=== PATIENT | male | born 1965 | race American Indian/Alaskan Native ===

== ENCOUNTER 2018-06-28 17:50 | Inpatient (IN) | payer MEDICAID ==
--- NOTE | 2018-06-28 19:28 | Emergency Department Report ---
ED Psych HPI - General Chief Complaint: Psych Stated Complaint: SI Time Seen by Provider: 06/28/18 19:19 Source: patient Mode of arrival: Ambulatory - History of Present Illness Initial Comments: Patient is 52 years old male with history of schizophrenia and HIV. Patient presented to the ER stating that he is hearing voices asking him to kill himself by walking in front of her car. Patient denied any visual hallucination. He also denied any homicidal ideation. MD Complaint: suicidal ideation, feels depressed Associated Psychiatric Symptoms: depression, suicidal ideation, auditory hallucinations Quality: constant Associated Symptoms: denies other symptoms Treatments Prior to Arrival: none If Self Harm: admits thoughts of, has plan, self-inflicted trauma - Related Data Allergies Allergy/AdvReac Type Severity Reaction Status Date / Time tramadol Allergy Unknown Verified 06/28/18 17:59 ED Review of Systems ROS: Stated complaint: SI Other details as noted in HPI Comment: All other systems reviewed and negative Constitutional: denies: chills, fever Respiratory: denies: cough, orthopnea, shortness of breath, SOB with exertion, SOB at rest, wheezing Cardiovascular: denies: chest pain, palpitations Gastrointestinal: denies: abdominal pain, nausea, vomiting, diarrhea, constipation, hematemesis, melena Musculoskeletal: denies: back pain Neurological: denies: headache, weakness, numbness, paresthesias, confusion Psychiatric: depression, auditory hallucinations, suicidal thoughts. denies: visual hallucinations, homicidal thoughts ED Physical Exam - General Limitations: No Limitations General appearance: alert, in no apparent distress - Head Head exam: Present: atraumatic, normocephalic, normal inspection - Eye Eye exam: Present: normal appearance, PERRL - ENT ENT exam: Present: normal exam, normal orophraynx, mucous membranes moist - Neck Neck exam: Present: normal inspection, full ROM. Absent: tenderness, meningismus, lymphadenopathy, thyromegaly - Respiratory Respiratory exam: Present: normal lung sounds bilaterally - Cardiovascular Cardiovascular Exam: Present: regular rate, normal rhythm, normal heart sounds - GI/Abdominal GI/Abdominal exam: Present: soft, normal bowel sounds. Absent: distended, tenderness, guarding, rebound, rigid, organomegaly, mass, bruit, pulsatile mass, hernia - Extremities Exam Extremities exam: Present: normal inspection, full ROM, normal capillary refill - Back Exam Back exam: Absent: CVA tenderness (R), CVA tenderness (L) - Neurological Exam Neurological exam: Present: alert, oriented X3, CN II-XII intact, normal gait - Psychiatric Psychiatric exam: Present: depressed, suicidal ideation. Absent: agitated, anxious, flat affect, manic, homicidal ideation - Skin Skin exam: Present: warm, intact, normal color Critical care attestation.: If time is entered above; I have spent that time in minutes in the direct care of this critically ill patient, excluding procedure time. ED Disposition Clinical Impression: Suicidal ideation Disposition: DC/TX-65 PSY HOSP/PSY UNIT Is pt being admited?: No Condition: Stable
[2018-06-28 19:33] LABS: BUN/Creatinine Ratio 16; Blood Urea Nitrogen 11 mg/dL (9-20); Calcium 8.7 mg/dL (8.4-10.2); Hemolysis Index 22
[2018-06-28] MEDS ORDERED: IBUPROFEN PO PRN (23:57)
[2018-06-29 01:51] LABS: Hematocrit 38.3 % (35.5-45.6); Hemoglobin 12.9 gm/dl (11.8-15.2); Mean Corpuscular HGB Conc 34 % (32-34); Mean Corpuscular Volume 96 fl (84-94); Platelet Count 166 K/mm3 (140-440); Red Cell Distribution Width 15.4 % (13.2-15.2)
[2018-06-29 03:21] LABS: Basophils % (Manual) 0 % (0.0-1.8); Total Cells Counted 100
[2018-06-29 03:22] LABS: Platelet Estimate Consistent w Auto; RBC Morphology Normal
[2018-06-29] MEDS: TRIMOX PO SCH ×3 (08:17→20:37)
[2018-06-29] MEDS: IBUPROFEN PO PRN ×2 (08:26→17:36)
[2018-06-29 09:41] LABS: Amphetamine Screen,Urine PRESUMPTIVE NEGATIVE; Benzodiazepines Screen,Urine PRESUMPTIVE NEGATIVE; Cannabinoid Screen,Urine PRESUMPTIVE NEGATIVE; Methadone Screen,Urine PRESUMPTIVE NEGATIVE; Opiate Screen,Urine PRESUMPTIVE NEGATIVE
[2018-06-29] MEDS: PERIDEX MM SCH ×2 (09:44→22:59)
[2018-06-29 10:04] LABS: Cocaine Screen,Urine PRESUMPTIVE POSITIVE
[2018-06-29 10:05] LABS: Bilirubin,Urine NEG (Negative); Blood,Urine NEG (Negative); Color,Urine Yellow (Yellow); Mucus,Urine FEW /HPF; Protein,Urine <15 mg/dL mg/dL (Negative); RBC,Urine < 1.0 /HPF (0.0-6.0); Urobilinogen,Urine < 2.0 mg/dL (<2.0)
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
[2018-06-29] MEDS ORDERED: TYLENOL ONE (14:49)
[2018-06-29] MEDS ORDERED: TYLENOL PO ONE (14:53)
[2018-06-29] MEDS: REMERON PO SCH (22:59)
[2018-06-29] MEDS: TYLENOL PO PRN (22:59)
[2018-06-30] MEDS: TRIMOX PO SCH ×3 (09:00→21:15)
[2018-06-30] MEDS: PERIDEX MM SCH ×2 (10:00→21:51)
[2018-06-30] MEDS ORDERED: NACL 0.9% 1000 ML 1,000 ML ONE (12:08)
[2018-06-30] MEDS ORDERED: CARDIZEM ONE (12:30)
[2018-06-30] MEDS: IBUPROFEN PO PRN (12:58)
--- NOTE | 2018-06-30 13:06 | Progress Note ---
Subjective - Reason for Consult Consult date: 06/30/18 Reason for consult: Psychiatric Follow-up Evaluation - Chief Complaint Chief complaint: "I still want to hurt myself" Patient is a 52 y.o. AA male who presented to the ER with SI's. Today the patient is calm and cooperative during the assessment. Today the patient is calm and cooperative during the assessment. He continues to endorse suicidal ideations without a plan and auditory hallucinations telling him " they're not going to help you and to hurt myself." He reports decrease sleep and appetite. He continues to state that he want help with his "cocaine habit." He stated that he is consuming alcohol (etoh) more frequently and is currently homeless. Reports medication compliance. No side effects noted/reported. Mental Status Exam - Vital signs Last Vital Signs Temp 97.8 F 06/30/18 07:49 Pulse 66 06/30/18 07:49 Resp 18 06/30/18 07:49 BP 123/80 06/30/18 07:49 Pulse Ox 100 06/30/18 07:49 - Exam Narrative exam: Mental Status Exam: Appearance: calm, cooperative Behavior: regular eye contact Speech: regular rate and tone Mood: "I still want to hurt myself" Affect: flat Thought Process: circumstantial Thought Content: denies HI's ; + SI's, AH's, and delusions Motor Activity: lying in bed Cognition: A/O x 3 Insight: fair Judgment: poor Assessment and Plan Impression: MDD. PTSD. Alcohol Use DO. Substance Use DO (cocaine). Today the patient is calm and cooperative during the assessment The patient endorses SI's without a plan, auditory hallucinations, and delusions . DDx: Substance Induced Mood DO Recommendation/Plan: 1. Continue 1013. 2. Continue Remeron 15 mg PO HS for depression/PTSD. Discussed possible suicidality/medication induced pedro with the patient reference Remeron. 3. Start Abilify 5mg po QAM mood/psychosis. Discussed possible metabolic side effects. Patient verbalizes understanding. Disposition: The patient was referred to inpatient psychiatric services. Staffed with Dr. Dmitry Verdin.
[2018-06-30 13:28] LABS: Alanine Aminotransferase 28 units/L (7-56); Albumin 3.1 g/dL (3.9-5); Bilirubin,Direct < 0.2 mg/dL (0-0.2)
[2018-06-30] MEDS: TYLENOL PO PRN (15:56)
[2018-06-30] MEDS: REMERON PO SCH (21:51)
[2018-07-01] MEDS ORDERED: BENADRYL PO ONE (07:35)
[2018-07-01 07:57] LABS: Hemoglobin 13.9 gm/dl (11.8-15.2); Mean Corpuscular HGB Conc 34 % (32-34); Mean Corpuscular Volume 96 fl (84-94); Platelet Count 236 K/mm3 (140-440); Red Blood Count 4.28 M/mm3 (3.65-5.03); Red Cell Distribution Width 15.3 % (13.2-15.2)
[2018-07-01 08:08] LABS: INR 0.83 (0.87-1.13)
[2018-07-01 08:09] LABS: Partial Thromboplastin Time 25.7 Sec. (24.2-36.6)
[2018-07-01 08:21] LABS: Creatine Kinase MB < 1.0 ng/mL (0.0-4.0)
--- NOTE | 2018-07-01 08:31 | Cat Scan Report ---
CT HEAD WITHOUT CONTRAST: HISTORY: Altered mental status, HIV, neutropenia. TECHNIQUE: Sequential 2.5mm CT images. COMPARISON: none. FINDINGS: Cerebral Parenchyma: Within normal limits. Cerebellum: Within normal limits. Brainstem: Within normal limits. Ventricles: Normal. Sella: Normal. Extra-axial spaces: Normal. Basal Cisterns: Normal. Intracranial Hemorrhage: None. Midline Shift: None. Calvarium: Normal. Sinuses: There is a mild degree of secretions or fluid in the ethmoid and right maxillary sinus. Mastoid Air Cells: Normal. Visualized Orbits: Normal. IMPRESSION: Cranial CT scan within normal limits. Mild sinus disease as described.
[2018-07-01] MEDS: TRIMOX PO SCH ×3 (09:00→22:27)
[2018-07-01 09:21] LABS: Anisocytosis 1+; Large Platelets Few; Platelet Estimate Consistent w Auto; Total Cells Counted 50
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
[2018-07-01] MEDS ORDERED: ABILIFY PO SCH (10:00)
[2018-07-01] MEDS: ZOLOFT PO SCH (11:00)
[2018-07-01] MEDS: PERIDEX MM SCH ×2 (11:00→22:27)
--- NOTE | 2018-07-01 11:06 | Cat Scan Report ---
CT FACIAL BONES WITHOUT CONTRAST: HISTORY: Pain, mandible fracture. TECHNIQUE: Helical CT images with sagittal and coronal CT reformations. FINDINGS: There is been previous internal fixation of the angle of the left mandible, left anterior maxillary wall and left lateral orbital wall. There are new/acute fractures involving the body of the left mandible, and right mandibular neck, right coronoid process and right zygoma. The remaining facial bones are intact. There is partial opacification of the ethmoid sinuses and small secretions in the right maxillary sinus. IMPRESSION: Multiple chronic internally fixated left facial fractures as described. Acute fractures are identified in the body of the left mandible, right mandibular neck, right coronoid process and right zygoma. These findings were discussed with Dr. Millan at 1035 hrs.
[2018-07-01] MEDS ORDERED: ABILIFY ONE (11:08)
[2018-07-01] MEDS ORDERED: ZOLOFT ONE ×2 (11:08→11:16)
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
--- NOTE | 2018-07-01 14:00 | Progress Note ---
Subjective - Reason for Consult Consult date: 07/01/18 Reason for consult: Psychiatry Follow-up - Chief Complaint Chief complaint: "I am not right" 52 y.o. AA male who presented to the ER with SI's. Today the patient is calm and cooperative during the assessment. He continues to state that he is still suicidal without a plan. He stated that he had a a "reaction" to the Remeron. He stated that he was experiencing "lower body twitching" when asked about the reaction. He denies HI's and VH's (intermittent AH's). He stated that he have not slept well the past 2 nights, Mental Status Exam - Vital signs Last Vital Signs Temp 98.3 F 07/01/18 09:05 Pulse 64 07/01/18 09:05 Resp 18 07/01/18 09:05 BP 149/99 07/01/18 09:05 Pulse Ox 95 07/01/18 09:05 - Exam Narrative exam: MSE: Appearance: calm, cooperative Behavior: regular eye contact Speech: regular rate and tone Mood: "tired" Affect: congruent to mood Thought Process: circumstantial Thought Content: denies HI's and VH's, intermittent AH's Motor Activity: lying in bed Cognition: A/O x3 Insight: fair Judgment: variable Assessment and Plan Impression: MDD. PTSD. Alcohol Use DO. Substance Use DO (cocaine). Today the patient is calm and cooperative during the assessment The patient endorses SI's without a plan. WBC 1.3. . DDx: Substance Induced Mood DO Recommendation/Plan: Continue 1013. D/C Remeron and start Zoloft 50 mg PO daily for depression/PTSD and Benadryl 25 mg PO HS for sleep. Discussed possible suicidality/medication induced pedro with the patient reference Zoloft. Will monitor the patient for psychosis, the patient's WBC is 1.3. Dispo: Once the patient is medically stable, proper dispo will be determined. Staffed with Dr Dmitry Verdin.
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
[2018-07-01 18:12] LABS: Hepatitis B Surface Antigen Reactive (Negative); Hepatitis C Virus Antibody Non-Reactive (NonReactive)
[2018-07-01] MEDS: LOVENOX SUB-Q SCH (22:27)
[2018-07-01] MEDS: BENADRYL PO SCH (22:27)
--- NOTE | 2018-07-01 22:50 | XRay Report ---
PROCEDURE: XR CHEST ROUTINE 2V TECHNIQUE: PA and lateral chest radiographs were obtained. HISTORY: homeless with AIDS eval for cavities/ TB/pneumonia COMPARISONS: None. FINDINGS: Heart: Normal. Mediastinum/Vessels: Normal. Lungs/Pleural space: Normal. Bony thorax: No acute osseous abnormality. IMPRESSION: Normal examination. This document is electronically signed by Jon Mauricio MD., July 01 2018 10:47:55 PM ET
[2018-07-02] MEDS ORDERED: COGENTIN PO SCH (10:00)
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
--- NOTE | 2018-07-02 12:51 | Progress Note ---
Subjective - Reason for Consult Consult date: 07/02/18 Reason for consult: Psychiatry Follow-up - Chief Complaint Chief complaint: "I'm well" 52 y.o. AA male who presented to the ER with SI's. Today the patient is calm and cooperative during the assessment. He stated that he is feeling pretty well today. He stated that his SI's "decreased." He denies HI's and AVH's. He denies any side effects of his medication. Mental Status Exam - Vital signs Last Vital Signs Temp 98.3 F 07/01/18 09:05 Pulse 70 07/02/18 05:42 Resp 18 07/01/18 13:55 BP 135/94 07/02/18 05:42 Pulse Ox 95 07/02/18 05:42 - Exam Narrative exam: MSE: Appearance: calm, cooperative Behavior: regular eye contact Speech: regular rate and tone Mood: "okay" Affect: congruent to mood Thought Process: circumstantial Thought Content: denies HI's and AVH's Motor Activity: lying in bed Cognition: A/O x3 Insight: variable to fair Judgment: variable to fair Assessment and Plan Impression: MDD. PTSD. Alcohol Use DO. Substance Use DO (cocaine). Today the patient is calm and cooperative during the assessment The patient endorses SI's without a plan. WBC 1.3. DDx: Substance Induced Mood DO Recommendation/Plan: Reevaluate the patient's 1013 in 24 hours. Continue Zoloft 50 mg PO daily for depression/PTSD and Benadryl 25 mg PO HS for sleep. Discussed possible suicidality/medication induced pedro with the patient reference Zoloft. Dispo: If the patient's 1013 is rescinded, he can follow up with [facility] for outpatient psy services. Will staff with Dr Dmitry Verdin.
[2018-07-02] MEDS: ZOLOFT PO SCH (13:28)
[2018-07-02] MEDS: TRIMOX PO SCH ×3 (13:28→21:58)
[2018-07-02] MEDS: PERIDEX MM SCH ×2 (14:36→21:58)
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
[2018-07-02] MEDS: LOVENOX SUB-Q SCH (21:58)
[2018-07-02] MEDS: BENADRYL PO SCH (21:58)
[2018-07-03] MEDS: PERIDEX MM SCH ×2 (10:05→21:36)
[2018-07-03] MEDS: ZOLOFT PO SCH (10:06)
--- NOTE | 2018-07-03 10:15 | Progress Note ---
Subjective - Reason for Consult Consult date: 07/03/18 Reason for consult: Psychiatry Follow-up - Chief Complaint Chief complaint: "Hello" 52 y.o. AA male who presented to the ER with SI's. Today the patient is calm and cooperative during the assessment. He stated that he spoke with is sister and she is willing to help him out once discharged. He would not confirm or deny SI'is, but did state that "Things are getting better." He denies HI's and AVH's. He denies any side effects of his medication. Mental Status Exam - Vital signs Last Vital Signs Temp 98.9 F 07/02/18 23:45 Pulse 70 07/02/18 23:45 Resp 20 07/02/18 23:45 BP 142/95 07/02/18 23:45 Pulse Ox 94 07/02/18 23:45 - Exam Narrative exam: MSE: Appearance: calm, cooperative Behavior: regular eye contact Speech: regular rate and tone Mood: "okay" Affect: congruent to mood Thought Process: circumstantial Thought Content: denies HI's and AVH's Motor Activity: lying in bed Cognition: A/O x3 Insight: fair Judgment: fair Assessment and Plan Impression: MDD. PTSD. Alcohol Use DO. Substance Use DO (cocaine). Today the patient is calm and cooperative during the assessment WBC 1.3. Medical: Airborne Precautions DDx: Substance Induced Mood DO Recommendation/Plan: Reevaluate the patient's 1013 in 24 hours. Continue Zoloft 50 mg PO daily for depression/PTSD and Benadryl 25 mg PO HS for sleep. Discussed possible suicidality/medication induced pedro with the patient reference Zoloft. Dispo: If the patient's 1013 is rescinded, he can follow up with [facility] for outpatient psy services. Will staff with Dr Dmitry Verdin.
--- NOTE | 2018-07-03 14:22 | Progress Note ---
Assessment and Plan Assessment and plan: Neutropenia, leukopenia, HIV/AIDS - ID consulted and recommended to rule out TB, and as an infectious workup - We'll follow - need to restart HIV meds - patient is on isolation Suicidal ideation - Patient is on 1013, mental has consulted - patient is on 1:1 Jaw fracture - CT of the Jaw showed multiple acute fractures and I have discussed with grade the oral maxillary surgeon Dr. Avtar Galeana and he said he'll follow him in the clinic phone number [phone] - No need to transfer to [place] Polysubstance abuse - Patient was counseled on stopping cocaine and marijuana abuse DVT prophylaxis - On lovenox Disposition - Continue inpatient care. History Interval history: Patient was seen and evaluated this morning, patient denied fever, chills. Patient has still suicidal. Hospitalist Physical - Physical exam Narrative exam: Not in cardiopulmonary distress. The patient appeared well nourished and normally developed. Vital signs as documented. Head exam is unremarkable. No scleral icterus . Neck is without jugular venous distension, thyromegaly, or carotid bruits. Lungs are clear to auscultation. Cardiac exam reveals regular rate and Rhythm. Abdominal exam reveals normal bowel sounds. Extremities are nonedematous and both femoral and pedal pulses are normal. 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 No focal weakness. - Constitutional Vitals: Temp Pulse Resp BP Pulse Ox 98.0 F 67 18 142/99 97 07/03/18 13:00 07/03/18 13:00 07/03/18 13:00 07/03/18 13:00 07/03/18 13:00 Results - Labs CBC & Chem 7: 07/01/18 07:41 06/28/18 18:55 Labs: Laboratory Last Values WBC 1.3 K/mm3 (4.5-11.0) L* 07/01/18 07:41 RBC 4.28 M/mm3 (3.65-5.03) 07/01/18 07:41 Hgb 13.9 gm/dl (11.8-15.2) 07/01/18 07:41 Hct 41.0 % (35.5-45.6) 07/01/18 07:41 MCV 96 fl (84-94) H 07/01/18 07:41 MCH 32 pg (28-32) 07/01/18 07:41 MCHC 34 % (32-34) 07/01/18 07:41 RDW 15.3 % (13.2-15.2) H 07/01/18 07:41 Plt Count 236 K/mm3 (140-440) 07/01/18 07:41 [place] % (Auto) [place] 06/29/18 01:36 Add Manual Diff Complete 07/01/18 07:41 Total Counted 50 07/01/18 07:41 Seg Neuts % (Manual) 52.0 % (40.0-70.0) 07/01/18 07:41 Band Neutrophils % 0 % 07/01/18 07:41 Lymphocytes % (Manual) 20.0 % (13.4-35.0) 07/01/18 07:41 Reactive Lymphs % (Man) 2.0 % 07/01/18 07:41 Monocytes % (Manual) 18.0 % (0.0-7.3) H 07/01/18 07:41 Eosinophils % (Manual) 6.0 % (0.0-4.3) H 07/01/18 07:41 Basophils % (Manual) 2.0 % (0.0-1.8) H 07/01/18 07:41 Metamyelocytes % 0 % 07/01/18 07:41 Myelocytes % 0 % 07/01/18 07:41 Promyelocytes % 0 % 07/01/18 07:41 Blast Cells % 0 % 07/01/18 07:41 Nucleated RBC % Not Reportable 07/01/18 07:41 Seg Neutrophils # Man 0.7 K/mm3 (1.8-7.7) L 07/01/18 07:41 Band Neutrophils # 0.0 K/mm3 07/01/18 07:41 Lymphocytes # (Manual) 0.3 K/mm3 (1.2-5.4) L 07/01/18 07:41 Abs React Lymphs (Man) 0.0 K/mm3 07/01/18 07:41 Monocytes # (Manual) 0.2 K/mm3 (0.0-0.8) 07/01/18 07:41 Eosinophils # (Manual) 0.1 K/mm3 (0.0-0.4) 07/01/18 07:41 Basophils # (Manual) 0.0 K/mm3 (0.0-0.1) 07/01/18 07:41 Metamyelocytes # 0.0 K/mm3 07/01/18 07:41 Myelocytes # 0.0 K/mm3 07/01/18 07:41 Promyelocytes # 0.0 K/mm3 07/01/18 07:41 Blast Cells # 0.0 K/mm3 07/01/18 07:41 WBC Morphology Not Reportable 07/01/18 07:41 Hypersegmented Neuts Not Reportable 07/01/18 07:41 Hyposegmented Neuts Not Reportable 07/01/18 07:41 Hypogranular Neuts Not Reportable 07/01/18 07:41 Smudge Cells Not Reportable 07/01/18 07:41 Toxic Granulation Not Reportable 07/01/18 07:41 Toxic Vacuolation Not Reportable 07/01/18 07:41 Dohle Bodies Not Reportable 07/01/18 07:41 Pelger-Huet Anomaly Not Reportable 07/01/18 07:41 Ann Rods Not Reportable 07/01/18 07:41 Platelet Estimate Consistent w auto 07/01/18 07:41 Clumped Platelets Not Reportable 07/01/18 07:41 Plt Clumps, EDTA Not Reportable 07/01/18 07:41 Large Platelets Few 07/01/18 07:41 Giant Platelets Not Reportable 07/01/18 07:41 Platelet Satelliting Not Reportable 07/01/18 07:41 Plt Morphology Comment Not Reportable 07/01/18 07:41 RBC Morphology Not Reportable 07/01/18 07:41 Dimorphic RBCs Not Reportable 07/01/18 07:41 Polychromasia Not Reportable 07/01/18 07:41 Hypochromasia Not Reportable 07/01/18 07:41 Poikilocytosis Not Reportable 07/01/18 07:41 Anisocytosis 1+ 07/01/18 07:41 Microcytosis Not Reportable 07/01/18 07:41 Macrocytosis Not Reportable 07/01/18 07:41 Spherocytes Not Reportable 07/01/18 07:41 Pappenheimer Bodies Not Reportable 07/01/18 07:41 Sickle Cells Not Reportable 07/01/18 07:41 Target Cells Not Reportable 07/01/18 07:41 Tear Drop Cells Not Reportable 07/01/18 07:41 Ovalocytes Not Reportable 07/01/18 07:41 Helmet Cells Not Reportable 07/01/18 07:41 [place] Bodies Not Reportable 07/01/18 07:41 Wilson Rings Not Reportable 07/01/18 07:41 Vitaliy Cells Not Reportable 07/01/18 07:41 Bite Cells Not Reportable 07/01/18 07:41 Crenated Cell Not Reportable 07/01/18 07:41 Elliptocytes Not Reportable 07/01/18 07:41 Acanthocytes (Spur) Not Reportable 07/01/18 07:41 Rouleaux Not Reportable 07/01/18 07:41 Hemoglobin C Crystals Not Reportable 07/01/18 07:41 Schistocytes Not Reportable 07/01/18 07:41 Malaria parasites Not Reportable 07/01/18 07:41 Dylan Bodies Not Reportable 07/01/18 07:41 Hem Pathologist Commnt No 07/01/18 07:41 PT 11.9 Sec. (12.2-14.9) L 07/01/18 07:41 INR 0.83 (0.87-1.13) L 07/01/18 07:41 APTT 25.7 Sec. (24.2-36.6) 07/01/18 07:41 Sodium 141 mmol/L (137-145) 06/28/18 18:55 Potassium 3.7 mmol/L (3.6-5.0) 06/28/18 18:55 Chloride 108.0 mmol/L (98-107) H 06/28/18 18:55 Carbon Dioxide 21 mmol/L (22-30) L 06/28/18 18:55 Anion Gap 16 mmol/L 06/28/18 18:55 BUN 11 mg/dL (9-20) 06/28/18 18:55 Creatinine 0.7 mg/dL (0.8-1.5) L 06/28/18 18:55 Estimated GFR > 60 ml/min 06/28/18 18:55 BUN/Creatinine Ratio 16 % 06/28/18 18:55 Glucose 85 mg/dL (75-100) 06/28/18 18:55 Lactic Acid 0.90 mmol/L (0.7-2.0) 07/01/18 07:41 Calcium 8.7 mg/dL (8.4-10.2) 06/28/18 18:55 Magnesium 2.00 mg/dL (1.7-2.3) 07/01/18 07:41 Total Bilirubin 0.30 mg/dL (0.1-1.2) 06/30/18 12:46 Direct Bilirubin < 0.2 mg/dL (0-0.2) 06/30/18 12:46 AST 25 units/L (5-40) 06/30/18 12:46 ALT 28 units/L (7-56) 06/30/18 12:46 Alkaline Phosphatase 65 units/L (35-129) 06/30/18 12:46 Total Creatine Kinase 51 units/L (55-170) L 07/01/18 07:41 CK-MB (CK-2) < 1.0 ng/mL (0.0-4.0) 07/01/18 07:41 CK-MB (CK-2) Rel Index 1.9 (0-4) 07/01/18 07:41 Troponin T < 0.010 ng/mL (0.00-0.029) 07/01/18 07:41 C-Reactive Protein 1.30 mg/dL (0.00-1.30) 07/01/18 17:17 Total Protein 6.5 g/dL (6.3-8.2) 06/30/18 12:46 Albumin 3.1 g/dL (3.9-5) L 06/30/18 12:46 Albumin/Globulin Ratio 0.9 % 06/30/18 12:46 Urine Color Yellow (Yellow) 06/28/18 22:14 Urine Turbidity Clear (Clear) 06/28/18 22:14 Urine pH 5.0 (5.0-7.0) 06/28/18 22:14 Ur Specific [place] 1.011 (1.003-1.030) 06/28/18 22:14 Urine Protein <15 mg/dl mg/dL (Negative) 06/28/18 22:14 Urine Glucose (UA) Neg mg/dL (Negative) 06/28/18 22:14 Urine Ketones Neg mg/dL (Negative) 06/28/18 22:14 Urine Blood Neg (Negative) 06/28/18 22:14 Urine Nitrite Neg (Negative) 06/28/18 22:14 Urine Bilirubin Neg (Negative) 06/28/18 22:14 Urine Urobilinogen < 2.0 mg/dL (<2.0) 06/28/18 22:14 Ur Leukocyte Esterase Neg (Negative) 06/28/18 22:14 Urine WBC (Auto) 1.0 /HPF (0.0-6.0) 06/28/18 22:14 Urine RBC (Auto) < 1.0 /HPF (0.0-6.0) 06/28/18 22:14 Urine Mucus Few /HPF 06/28/18 22:14 Salicylates < 0.3 mg/dL (2.8-20.0) L 06/28/18 18:55 Urine Opiates Screen Presumptive negative 06/28/18 22:14 Urine Methadone Screen Presumptive negative 06/28/18 22:14 Acetaminophen < 5.0 ug/mL (10.0-30.0) L 06/28/18 18:55 Ur Barbiturates Screen Presumptive negative 06/28/18 22:14 Ur Phencyclidine Scrn Presumptive negative 06/28/18 22:14 Ur Amphetamines Screen Presumptive negative 06/28/18 22:14 U Benzodiazepines Scrn Presumptive negative 06/28/18 22:14 Urine Cocaine Screen Presumptive positive 06/28/18 22:14 U Marijuana (THC) Screen Presumptive negative 06/28/18 22:14 Drugs of Abuse Note Disclamer 06/28/18 22:14 Plasma/Serum Alcohol 0.06 % (0-0.07) 06/28/18 18:55 RPR Nonreactive (Nonreactive) 07/01/18 17:05 Hepatitis A IgM Ab Non-reactive (NonReactive) 07/01/18 17:17 Hep Bs Antigen Reactive (Negative) 07/01/18 17:17 Hep B Core IgM Ab Non-reactive (NonReactive) 07/01/18 17:17 Hepatitis C Antibody Non-reactive (NonReactive) 07/01/18 17:17 Active Medications - Current Medications Current Medications: Generic Name Dose Route Start Last Admin Trade Name Freq PRN Reason Stop Dose Admin Acetaminophen 650 mg 06/29/18 23:00 06/30/18 15:56 Tylenol PO 650 mg Q6H PRN Administration Pain, Mild (1-3) Chlorhexidine Gluconate 15 ml 07/01/18 22:00 07/03/18 10:05 Peridex MM 15 ml BID NAOMY Administration Diphenhydramine HCl 25 mg 07/01/18 22:00 07/02/18 21:58 Benadryl PO 25 mg QHS NAOMY Administration Enoxaparin Sodium 40 mg 07/01/18 22:00 07/02/18 21:58 Lovenox SUB-Q 40 mg QDAY@2200 NAOMY Administration Sertraline HCl 50 mg 07/01/18 10:00 07/03/18 10:06 Zoloft PO 50 mg DAILY NAOMY Administration Nutrition/Malnutrition Assess - Dietary Evaluation Nutrition/Malnutrition Findings: Nutrition Notes Start: 07/01/18 14:27 Freq: Status: Active Protocol: Document 07/01/18 14:27 RM (Rec: 07/01/18 14:41 RM [id number]) Nutrition Notes Need for Assessment generated from: MD Order Initial or Follow up Assessment Other Pertinent Diagnosis HIV, depression,jaw fracture, suicidal ideation, polysubstance abuse,homeless Current Diet No diet ordered Labs/Tests Reviewed Pertinent Medications Reviwed Height 5 ft 7.5 in Weight 68.039 kg Usual Body Weight 75.91 kg [place] Body Weight (kg) 68.63 BMI 23.1 Weight change and time frame 10.4% X 1 1/2 months Subjective/Other Information Consulted for "poor oral intake." 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 Stated UBW was 167 lbs 1 1/2 months ago. Burn Absent Trauma Absent #1 Nutrition Diagnosis Unintended weight loss Etiology jaw fracture, HIV, depression As Evidenced by Signs and Symptoms 10.4% wt loss X 1 1/2 months Is patient on ventilator? No Is Patient Ambulatory and/or Out of Bed Yes REE-([facility]-ambulatory/OOB) [ 1946.035 [id number]] Calculation Used for Recommendations [facility] Additional Notes Protein Needs: 54-68g (0.8-1g/ kg) Fluid Needs: 1 ml/kcal Nutrition Intervention Change Diet Order: order pureed diet Add Supplement/Snack (indicate name/kcal Ensure Enlive [place] 1 /protein ) daily once diet advanced Provides kCal: 350 Provides Protein (gm) 20 Goal #1 Diet advancement Anticipated Discharge Needs: Unable to determine at this time Follow-Up By: 07/05/18 Additional Comments Follow for diet advancement, PO and ONS intakes
--- NOTE | 2018-07-03 17:34 | Ultrasound Report ---
PROCEDURE: US ABDOMEN LIMITED HISTORY: eval to r/o cirrhosis FINDINGS: Real-time ultrasound of the right upper quadrant was performed. The visualized portion of pancreas is unremarkable There is no evidence of gallstones or cholecystitis. The common duct measures 0.1 cm which is within normal limits. The abdominal aorta is normal in size approximately 2.4 cm. The distal aorta is not seen. The right kidney measures 11.2 x 4.7 x 5.5 cm. Renal cortical thickness is 1.9 cm which is within nor mal limits. The liver appears normal in size and echotexture. No ultrasound evidence of cirrhosis is seen. IMPRESSION: The liver is normal in size and echotexture No evidence of gallstones or of cholecystitis This document is electronically signed by Wenceslao Smith MD., July 03 2018 05:32:32 PM ET
[2018-07-03] MEDS: BENADRYL PO SCH (21:36)
[2018-07-03] MEDS: LOVENOX SUB-Q SCH (21:36)
[2018-07-03] MEDS: TYLENOL PO PRN (21:37)
[2018-07-04 07:57] LABS: Hemoglobin 14.5 gm/dl (11.8-15.2); Mean Corpuscular HGB Conc 35 % (32-34); Mean Corpuscular Volume 95 fl (84-94); Platelet Count 289 K/mm3 (140-440); Red Blood Count 4.42 M/mm3 (3.65-5.03); Red Cell Distribution Width 14.7 % (13.2-15.2)
[2018-07-04] MEDS: TYLENOL PO PRN (07:58)
[2018-07-04 09:04] LABS: BUN/Creatinine Ratio 13; Blood Urea Nitrogen 9 mg/dL (9-20); Calcium 9.2 mg/dL (8.4-10.2); Hemolysis Index 3
[2018-07-04] MEDS: PERIDEX MM SCH ×2 (10:04→21:20)
[2018-07-04] MEDS: ZOLOFT PO SCH (10:04)
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
[2018-07-04 10:39] LABS: Basophils % (Manual) 0 % (0.0-1.8); Total Cells Counted 100
[2018-07-04 10:40] LABS: Large Platelets Few; Platelet Estimate Consistent w Auto; RBC Morphology Normal
--- NOTE | 2018-07-04 13:23 | Progress Note ---
Assessment and Plan - Patient Problems (1) Cocaine abuse Current Visit: Yes Status: Acute Plan to address problem: Polysubstance abuse patient has been informed and educated on the risk of polysubstance abuse and how to fix HIV and other infections. (2) HIV positive Current Visit: Yes Status: Acute Plan to address problem: Patient will be started back on antiretrovirals per ID. Rule out TB. (3) Neutropenia Current Visit: Yes Status: Acute Qualifiers: Neutropenia type: unspecified Qualified Code(s): D70.9 - Neutropenia, unsp ecified Plan to address problem: She remains neutropenic most likely secondary to HIV. (4) Suicidal ideation Current Visit: Yes Status: Acute Plan to address problem: Patient started on Zoloft no local consisted to be a suicidal risk. We'll receive 1013. History Interval history: Patient denies any new concerns. Just would like to receive pain medications. States pain suboptimally controlled. Currently ruling out for TB patient is not given specimen yet. She no longer has any suicidal ideations stable with Zoloft and 1013 has been rescinded today. Hospitalist Physical - Constitutional Vitals: Temp Pulse Resp BP Pulse Ox 98.4 F 88 22 112/79 94 07/04/18 11:35 07/04/18 11:35 07/04/18 11:35 07/04/18 11:35 07/04/18 11:35 General appearance: Present: no acute distress, mild distress, cachectic, other - EENT Eyes: Present: PERRL, EOM intact ENT: hearing intact, clear oral mucosa, dentition normal - Neck Neck: Present: supple, normal ROM - Respiratory Respiratory: bilateral: CTA - Cardiovascular Rhythm: irregularly irregular Heart Sounds: Present: S1 & S2 (temporal wasting.) - Extremities Extremities: no ischemia, No edema, normal temperature, normal color Extremity abnormal: pulses diminished Peripheral Pulses: within normal limits - Abdominal General gastrointestinal: soft, non-tender, non-distended, normal bowel sounds - Integumentary Integumentary: Present: clear, warm, dry, erythema - Psychiatric Psychiatric: appropriate mood/affect, intact judgment & insight, memory intact - Neurologic Neurologic: CNII-XII intact, focal deficits, moves all extremities Results - Labs CBC & Chem 7: 07/04/18 07:16 07/04/18 07:16 Labs: Laboratory Last Values WBC 1.3 K/mm3 (4.5-11.0) L* 07/04/18 07:16 RBC 4.42 M/mm3 (3.65-5.03) 07/04/18 07:16 Hgb 14.5 gm/dl (11.8-15.2) 07/04/18 07:16 Hct 42.0 % (35.5-45.6) 07/04/18 07:16 MCV 95 fl (84-94) H 07/04/18 07:16 MCH 33 pg (28-32) H 07/04/18 07:16 MCHC 35 % (32-34) H 07/04/18 07:16 RDW 14.7 % (13.2-15.2) 07/04/18 07:16 Plt Count 289 K/mm3 (140-440) 07/04/18 07:16 [place] % (Auto) Controls Operator Molded Goods 07/04/18 07:16 Add Manual Diff Complete 07/04/18 07:16 Total Counted 100 07/04/18 07:16 Seg Neutrophils % Controls Operator Molded Goods 07/04/18 07:16 Seg Neuts % (Manual) 40.0 % (40.0-70.0) 07/04/18 07:16 Band Neutrophils % 0 % 07/04/18 07:16 Lymphocytes % (Manual) 18.0 % (13.4-35.0) 07/04/18 07:16 Reactive Lymphs % (Man) 6.0 % 07/04/18 07:16 Monocytes % (Manual) 30.0 % (0.0-7.3) H 07/04/18 07:16 Eosinophils % (Manual) 4.0 % (0.0-4.3) 07/04/18 07:16 Basophils % (Manual) 0 % (0.0-1.8) 07/04/18 07:16 Metamyelocytes % 2.0 % 07/04/18 07:16 Myelocytes % 0 % 07/04/18 07:16 Promyelocytes % 0 % 07/04/18 07:16 Blast Cells % 0 % 07/04/18 07:16 Nucleated RBC % Not Reportable 07/04/18 07:16 Seg Neutrophils # Man 0.5 K/mm3 (1.8-7.7) L 07/04/18 07:16 Band Neutrophils # 0.0 K/mm3 07/04/18 07:16 Lymphocytes # (Manual) 0.2 K/mm3 (1.2-5.4) L 07/04/18 07:16 Abs React Lymphs (Man) 0.1 K/mm3 07/04/18 07:16 Monocytes # (Manual) 0.4 K/mm3 (0.0-0.8) 07/04/18 07:16 Eosinophils # (Manual) 0.1 K/mm3 (0.0-0.4) 07/04/18 07:16 Basophils # (Manual) 0.0 K/mm3 (0.0-0.1) 07/04/18 07:16 Metamyelocytes # 0.0 K/mm3 07/04/18 07:16 Myelocytes # 0.0 K/mm3 07/04/18 07:16 Promyelocytes # 0.0 K/mm3 07/04/18 07:16 Blast Cells # 0.0 K/mm3 07/04/18 07:16 WBC Morphology Not Reportable 07/04/18 07:16 Hypersegmented Neuts Not Reportable 07/04/18 07:16 Hyposegmented Neuts Not Reportable 07/04/18 07:16 Hypogranular Neuts Not Reportable 07/04/18 07:16 Smudge Cells Not Reportable 07/04/18 07:16 Toxic Granulation Not Reportable 07/04/18 07:16 Toxic Vacuolation Not Reportable 07/04/18 07:16 Dohle Bodies Not Reportable 07/04/18 07:16 Pelger-Huet Anomaly Not Reportable 07/04/18 07:16 Ann Rods Not Reportable 07/04/18 07:16 Platelet Estimate Consistent w auto 07/04/18 07:16 Clumped Platelets Not Reportable 07/04/18 07:16 Plt Clumps, EDTA Not Reportable 07/04/18 07:16 Large Platelets Few 07/04/18 07:16 Giant Platelets Not Reportable 07/04/18 07:16 Platelet Satelliting Not Reportable 07/04/18 07:16 Plt Morphology Comment Not Reportable 07/04/18 07:16 RBC Morphology Normal 07/04/18 07:16 Dimorphic RBCs Not Reportable 07/04/18 07:16 Polychromasia Not Reportable 07/04/18 07:16 Hypochromasia Not Reportable 07/04/18 07:16 Poikilocytosis Not Reportable 07/04/18 07:16 Anisocytosis Not Reportable 07/04/18 07:16 Microcytosis Not Reportable 07/04/18 07:16 Macrocytosis Not Reportable 07/04/18 07:16 Spherocytes Not Reportable 07/04/18 07:16 Pappenheimer Bodies Not Reportable 07/04/18 07:16 Sickle Cells Not Reportable 07/04/18 07:16 Target Cells Not Reportable 07/04/18 07:16 Tear Drop Cells Not Reportable 07/04/18 07:16 Ovalocytes Not Reportable 07/04/18 07:16 Helmet Cells Not Reportable 07/04/18 07:16 [place] Bodies Not Reportable 07/04/18 07:16 [place] Rings Not Reportable 07/04/18 07:16 Vitaliy Cells Not Reportable 07/04/18 07:16 Bite Cells Not Reportable 07/04/18 07:16 Crenated Cell Not Reportable 07/04/18 07:16 Elliptocytes Not Reportable 07/04/18 07:16 Acanthocytes (Spur) Not Reportable 07/04/18 07:16 Rouleaux Not Reportable 07/04/18 07:16 Hemoglobin C Crystals Not Reportable 07/04/18 07:16 Schistocytes Not Reportable 07/04/18 07:16 Malaria parasites Not Reportable 07/04/18 07:16 Dylan Bodies Not Reportable 07/04/18 07:16 Hem Pathologist Commnt No 07/04/18 07:16 PT 11.9 Sec. (12.2-14.9) L 07/01/18 07:41 INR 0.83 (0.87-1.13) L 07/01/18 07:41 APTT 25.7 Sec. (24.2-36.6) 07/01/18 07:41 Sodium 139 mmol/L (137-145) 07/04/18 07:16 Potassium 4.3 mmol/L (3.6-5.0) 07/04/18 07:16 Chloride 101.8 mmol/L (98-107) 07/04/18 07:16 Carbon Dioxide 25 mmol/L (22-30) 07/04/18 07:16 Anion Gap 17 mmol/L 07/04/18 07:16 BUN 9 mg/dL (9-20) 07/04/18 07:16 Creatinine 0.7 mg/dL (0.8-1.5) L 07/04/18 07:16 Estimated GFR > 60 ml/min 07/04/18 07:16 BUN/Creatinine Ratio 13 % 07/04/18 07:16 Glucose 91 mg/dL (75-100) 07/04/18 07:16 Lactic Acid 0.90 mmol/L (0.7-2.0) 07/01/18 07:41 Calcium 9.2 mg/dL (8.4-10.2) 07/04/18 07:16 Magnesium 2.00 mg/dL (1.7-2.3) 07/01/18 07:41 Total Bilirubin 0.30 mg/dL (0.1-1.2) 06/30/18 12:46 Direct Bilirubin < 0.2 mg/dL (0-0.2) 06/30/18 12:46 AST 25 units/L (5-40) 06/30/18 12:46 ALT 28 units/L (7-56) 06/30/18 12:46 Alkaline Phosphatase 65 units/L (35-129) 06/30/18 12:46 Total Creatine Kinase 51 units/L (55-170) L 07/01/18 07:41 CK-MB (CK-2) < 1.0 ng/mL (0.0-4.0) 07/01/18 07:41 CK-MB (CK-2) Rel Index 1.9 (0-4) 07/01/18 07:41 Troponin T < 0.010 ng/mL (0.00-0.029) 07/01/18 07:41 C-Reactive Protein 1.30 mg/dL (0.00-1.30) 07/01/18 17:17 Total Protein 6.5 g/dL (6.3-8.2) 06/30/18 12:46 Albumin 3.1 g/dL (3.9-5) L 06/30/18 12:46 Albumin/Globulin Ratio 0.9 % 06/30/18 12:46 Urine Color Yellow (Yellow) 06/28/18 22:14 Urine Turbidity Clear (Clear) 06/28/18 22:14 Urine pH 5.0 (5.0-7.0) 06/28/18 22:14 Ur Specific [place] 1.011 (1.003-1.030) 06/28/18 22:14 Urine Protein <15 mg/dl mg/dL (Negative) 06/28/18 22:14 Urine Glucose (UA) Neg mg/dL (Negative) 06/28/18 22:14 Urine Ketones Neg mg/dL (Negative) 06/28/18 22:14 Urine Blood Neg (Negative) 06/28/18 22:14 Urine Nitrite Neg (Negative) 06/28/18 22:14 Urine Bilirubin Neg (Negative) 06/28/18 22:14 Urine Urobilinogen < 2.0 mg/dL (<2.0) 06/28/18 22:14 Ur Leukocyte Esterase Neg (Negative) 06/28/18 22:14 Urine WBC (Auto) 1.0 /HPF (0.0-6.0) 06/28/18 22:14 Urine RBC (Auto) < 1.0 /HPF (0.0-6.0) 06/28/18 22:14 Urine Mucus Few /HPF 06/28/18 22:14 Salicylates < 0.3 mg/dL (2.8-20.0) L 06/28/18 18:55 Urine Opiates Screen Presumptive negative 06/28/18 22:14 Urine Methadone Screen Presumptive negative 06/28/18 22:14 Acetaminophen < 5.0 ug/mL (10.0-30.0) L 06/28/18 18:55 Ur Barbiturates Screen Presumptive negative 06/28/18 22:14 Ur Phencyclidine Scrn Presumptive negative 06/28/18 22:14 Ur Amphetamines Screen Presumptive negative 06/28/18 22:14 U Benzodiazepines Scrn Presumptive negative 06/28/18 22:14 Urine Cocaine Screen Presumptive positive 06/28/18 22:14 U Marijuana (THC) Screen Presumptive negative 06/28/18 22:14 Drugs of Abuse Note Disclamer 06/28/18 22:14 Plasma/Serum Alcohol 0.06 % (0-0.07) 06/28/18 18:55 RPR Nonreactive (Nonreactive) 07/01/18 17:05 Hepatitis A IgM Ab Non-reactive (NonReactive) 07/01/18 17:17 Hep Bs Antigen Reactive (Negative) 07/01/18 17:17 Hep B Core IgM Ab Non-reactive (NonReactive) 07/01/18 17:17 Hepatitis C Antibody Non-reactive (NonReactive) 07/01/18 17:17 Active Medications - Current Medications Current Medications: Generic Name Dose Route Start Last Admin Trade Name Freq PRN Reason Stop Dose Admin Acetaminophen 650 mg 06/29/18 23:00 07/04/18 07:58 Tylenol PO 650 mg Q6H PRN Administration Pain, Mild (1-3) Chlorhexidine Gluconate 15 ml 07/01/18 22:00 07/04/18 10:04 Peridex MM 15 ml BID NAOMY Administration Diphenhydramine HCl 25 mg 07/01/18 22:00 07/03/18 21:36 Benadryl PO 25 mg QHS NAOMY Administration Enoxaparin Sodium 40 mg 07/01/18 22:00 07/03/18 21:36 Lovenox SUB-Q 40 mg QDAY@2200 NAOMY Administration Sertraline HCl 50 mg 07/01/18 10:00 07/04/18 10:04 Zoloft PO 50 mg DAILY NAOMY Administration Nutrition/Malnutrition Assess - Dietary Evaluation Nutrition/Malnutrition Findings: Nutrition Notes Start: 07/01/18 14:27 Freq: Status: Active Protocol: Document 07/01/18 14:27 RM (Rec: 07/01/18 14:41 RM [id number]) Nutrition Notes Need for Assessment generated from: MD Order Initial or Follow up Assessment Other Pertinent Diagnosis HIV, depression,jaw fracture, suicidal ideation, polysubstance abuse,homeless Current Diet No diet ordered Labs/Tests Reviewed Pertinent Medications Reviwed Height 5 ft 7.5 in Weight 68.039 kg Usual Body Weight 75.91 kg [place] Body Weight (kg) 68.63 BMI 23.1 Weight change and time frame 10.4% X 1 1/2 months Subjective/Other Information Consulted for "poor oral intake." 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 Stated UBW was 167 lbs 1 1/2 months ago. Burn Absent Trauma Absent #1 Nutrition Diagnosis Unintended weight loss Etiology jaw fracture, HIV, depression As Evidenced by Signs and Symptoms 10.4% wt loss X 1 1/2 months Is patient on ventilator? No Is Patient Ambulatory and/or Out of Bed Yes REE-([facility]-ambulatory/OOB) [ 1946.035 [id number]] Calculation Used for Recommendations [facility] Additional Notes Protein Needs: 54-68g (0.8-1g/ kg) Fluid Needs: 1 ml/kcal Nutrition Intervention Change Diet Order: order pureed diet Add Supplement/Snack (indicate name/kcal Ensure Enlive Phenix 1 /protein ) daily once diet advanced Provides kCal: 350 Provides Protein (gm) 20 Goal #1 Diet advancement Anticipated Discharge Needs: Unable to determine at this time Follow-Up By: 07/05/18 Additional Comments Follow for diet advancement, PO and ONS intakes
[2018-07-04] MEDS: PERCOCET 5/325 PO PRN ×2 (14:07→21:20)
[2018-07-04] MEDS: LOVENOX SUB-Q SCH (21:21)
[2018-07-04] MEDS: BENADRYL PO SCH (21:21)
[2018-07-05] MEDS: PERCOCET 5/325 PO PRN ×2 (03:20→19:42)
[2018-07-05] MEDS: PERIDEX MM SCH ×3 (09:57→21:29)
[2018-07-05] MEDS: ZOLOFT PO SCH (09:57)
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
[2018-07-05] MEDS: LOVENOX SUB-Q SCH (21:28)
[2018-07-05] MEDS: BENADRYL PO SCH (21:28)
[2018-07-06] MEDS: PERCOCET 5/325 PO PRN ×3 (01:46→17:56)
[2018-07-06 08:57] LABS: CD4/CD8 Ratio 0.01 (0.86-5.00)
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
[2018-07-06] MEDS: ZOLOFT PO SCH (11:38)
[2018-07-06] MEDS: PERIDEX MM SCH ×2 (11:39→21:33)
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
[2018-07-06] MEDS: BACTRIM DS PO SCH (17:29)
[2018-07-06] MEDS: LOVENOX SUB-Q SCH (21:33)
[2018-07-06] MEDS: BENADRYL PO SCH (21:33)
[2018-07-07] MEDS: PERCOCET 5/325 PO PRN ×2 (00:48→09:39)
[2018-07-07 01:07] LABS: Hematocrit 40.8 % (35.5-45.6); Hemoglobin 13.5 gm/dl (11.8-15.2); Mean Corpuscular HGB Conc 33 % (32-34); Mean Corpuscular Volume 97 fl (84-94); Platelet Count 258 K/mm3 (140-440); Red Blood Count 4.22 M/mm3 (3.65-5.03); Red Cell Distribution Width 14.8 % (13.2-15.2)
[2018-07-07 02:17] LABS: Basophils % (Manual) 0 % (0.0-1.8); Total Cells Counted 100
[2018-07-07 02:18] LABS: Platelet Estimate Consistent w Auto; RBC Morphology Normal
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
[2018-07-07] MEDS: ZOLOFT PO SCH (09:39)
[2018-07-07] MEDS: BACTRIM DS PO SCH (09:39)
[2018-07-07] MEDS: PERIDEX MM SCH (09:50)
[2018-07-07] MEDS ORDERED: ZITHROMAX PO SCH (10:00)
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
[2018-07-07 13:09] VITALS: BP 109/65
[2018-07-07 19:49] LABS: HIV-1 RNA QN PCR 3.36 Log cps/mL
== END 2018-07-07 13:50 | disposition home or self-care (01) | DRG 157 ==
LOC: ED 17:50 → EEVIPCON 17:50 → 3A 07-01 09:21
PROVIDERS: ADMIT Internal Medicine; ATTEND Internal Medicine
DX: S02.631A Fracture of coronoid process of right mandible, initial encounter for closed fracture (principal); B20 Human immunodeficiency virus [HIV] disease; S02.602A Fracture of unspecified part of body of left mandible, initial encounter for closed fracture; D70.9 Neutropenia, unspecified; E44.0 Moderate protein-calorie malnutrition; F10.19 Alcohol abuse with unspecified alcohol-induced disorder; F14.19 Cocaine abuse with unspecified cocaine-induced disorder; F17.210 Nicotine dependence, cigarettes, uncomplicated; Y90.0 Blood alcohol level of less than 20 mg/100 ml; S02.40EA Zygomatic fracture, right side, initial encounter for closed fracture; F12.10 Cannabis abuse, uncomplicated; F32.9 Major depressive disorder, single episode, unspecified; F43.10 Post-traumatic stress disorder, unspecified; X58.XXXA Exposure to other specified factors, initial encounter; Z68.23 Body mass index [BMI] 23.0-23.9, adult; Z59.0 Homelessness; Z88.8 Allergy status to other drugs, medicaments and biological substances; Z79.2 Long term (current) use of antibiotics; Z79.899 Other long term (current) drug therapy; Z71.51 Drug abuse counseling and surveillance of drug abuser; Y93.89 Activity, other specified; Y92.89 Other specified places as the place of occurrence of the external cause; Y99.8 Other external cause status
CPT/HCPCS: 36415; 70450; 70486; 71046; 76705; 80048; 80074; 80076; 80307; 80320; 81001; 82024; 82140; 82550; 82553; 83735; 84484; 85007; 85025; 85610; 85730; 86140; 86403; 86592; 87040; 87497; 87517; 87536; 93005; 93010; G0378; G0480; J1650; J7030

== ENCOUNTER 2018-08-18 11:30 | Emergency (ER) | payer MEDICAID ==
[2018-08-18 11:44] VITALS: BP 131/97
--- NOTE | 2018-08-18 11:51 | Emergency Department Report ---
ED Rash HPI - HPI Chief Complaint: Skin Rash Stated Complaint: BUG BITE Time Seen by Provider: 08/18/18 11:43 Duration: 1 Day Location: Lower Extremities Suspected Cause: Insect Rash Symptoms: Yes Itching, No Facial Swelling, No Tongue/Oral Swelling, No Breathing Difficulties, No Choking Sensation, No Wheezing/Dyspnea, No Peeling, No Blistering, No Fever, No Lightheaded, No Malaise, No Myalgias Severity: mild Other History: This is a 52-year-old male that presents with left ankle area redness and itching with pain. Stated had some insect bites now has pain. Stated pay be bed bugs. Denies any fever, chills, headache, nausea, vomiting, chest pain, shortness of breathe, pus or drainge. Denies any swelling. Denies any significant PMH. ED Review of Systems ROS: Stated complaint: BUG BITE Other details as noted in HPI Constitutional: denies: chills, fever Eyes: denies: eye pain, eye discharge, vision change ENT: denies: ear pain, throat pain Respiratory: denies: cough, shortness of breath, wheezing Cardiovascular: denies: chest pain, palpitations Endocrine: no symptoms reported Gastrointestinal: denies: abdominal pain, nausea, diarrhea Genitourinary: denies: urgency, dysuria Musculoskeletal: denies: back pain, joint swelling, arthralgia Skin: denies: rash, lesions Neurological: denies: headache, weakness, paresthesias Psychiatric: denies: anxiety, depression Hematological/Lymphatic: denies: easy bleeding, easy bruising ED Past Medical Hx - Past Medical History Previous Medical History?: Yes Hx Psychiatric Treatment: Yes Hx HIV: Yes - Surgical History Past Surgical History?: Yes Additional Surgical History: Jaw - Social History Smoking Status: Current Every Day Smoker Substance Use Type: None - Medications Home Medications: Home Medications Medication Instructions Recorded Confirmed Last Taken Type Chlorhexidine Gluconate [Paroex] 473 ml MM BID 06/28/18 06/28/18 06/28/18 History Azithromycin [Zithromax TAB] 1,200 mg PO We #4 tablet 07/07/18 Unknown Rx Sertraline [Zoloft] 50 mg PO DAILY #30 tablet 07/07/18 Unknown Rx Sulfamethoxazole/Trimethoprim 1 each PO QDAY #30 tablet 07/07/18 Unknown Rx [Bactrim DS TAB] diphenhydrAMINE [Benadryl CAP] 25 mg PO QHS #7 capsule 07/07/18 Unknown Rx Doxycycline Hyclate [Doxycycline 100 mg PO BID 10 Days #20 tab 07/24/18 Unknown Rx Hyclate TAB] Clindamycin [Clindamycin CAP] 300 mg PO Q8H #21 cap 08/18/18 Unknown Rx Hydrocortisone 1% [Hydrocortisone 1 applicatio TP TID #1 tube 08/18/18 Unknown Rx 1% CREAM] diphenhydrAMINE [Benadryl CAP] 25 mg PO QHS PRN #12 capsule 08/18/18 Unknown Rx Rash Exam - Exam General: Vital signs noted. No distress. Alert and acting appropriately. HEENT: No Periorbital Edema, No Conjuctival Injection, No Chemosis, No Perioral Edema, No Tongue Edema, No Uvular Edema, No Compromised Airway, No Drooling Lungs: Yes Good Air Exchange (Normal Breath Sounds), No Wheezes, No Ronchi, No Stridor, No Cough, No Labored Respirations, No Retractions, No Use of Accessory Muscles, No Other Abnormal Lung Sounds Heart: Yes Regular, No Murmur Skin: Yes Erythema (lower ext, left side. No pus or drainge.), No Urticarial Rash, No Maculopapular Rash, No Morbilliform rash, No Bulla(e), No Excoriations, No Weeping, No Tenderness, No Edema, No Encrustations, No Other Other: Positive: Abdomen Normal, Neurologic Normal, Musculoskeletal Normal ED Course Vital Signs 08/18/18 11:42 Temperature 98.2 F Pulse Rate 81 Respiratory 20 Rate Blood Pressure 131/97 O2 Sat by Pulse 100 Oximetry - Reevaluation(s) Reevaluation #1: 08/18/18 11:46 Patient is speaking in full sentences with no signs of distress noted. ED Medical Decision Making - Medical Decision Making This is a 52-year-old male that presents with cellulitis. Patient is stable and was examined by me. The area of redness and cellulitis has been outlined with a permanent marker. Patient will be discharged with [facility]. Patient was instructed to Follow-up with a primary care doctor in 3-5 days or if symptoms worsen and continue return to emergency room as soon as possible. At time of discharge, the patient does not seem toxic or ill in appearance. No acute signs of distress noted. Patient agrees to discharge treatment plan of care. No further questions noted by the patient. Critical care attestation.: If time is entered above; I have spent that time in minutes in the direct care of this critically ill patient, excluding procedure time. ED Disposition Clinical Impression: Cellulitis Qualifiers: Site of cellulitis: extremity Site of cellulitis of extremity: lower extremity Laterality: left Qualified Code(s): L03.116 - Cellulitis of left lower limb Disposition: DC- TO HOME OR SELFCARE Is pt being admited?: No Does the pt Need Aspirin: No Condition: Stable Instructions: Cellulitis (ED) Additional Instructions: Follow-up with a primary care doctor in 3-5 days or if symptoms worsen and continue return to the emergency department as soon as possible. Prescriptions: diphenhydrAMINE [Benadryl CAP] 25 mg PO QHS PRN #12 capsule PRN Reason: Itching Clindamycin [Clindamycin CAP] 300 mg PO Q8H #21 cap Hydrocortisone 1% [Hydrocortisone 1% CREAM] 1 applicatio TP TID #1 tube Referrals: PRIMARY CAREMD [Referring] - 3-5 Days BASILIO OROURKE MD [Staff Physician] - 3-5 Days [facility] [place] [Outside] - 3-5 Days [facility] [Outside] - 3-5 Days Forms: Work/School Release Form(ED)
== END 2018-08-18 11:55 | disposition home or self-care (01) ==
LOC: ED 11:30
DX: L03.116 Cellulitis of left lower limb (principal); F17.200 Nicotine dependence, unspecified, uncomplicated; Z88.6 Allergy status to analgesic agent
CPT/HCPCS: 99282